=== PATIENT | male | born 1960 | race Caucasian/White ===

== ENCOUNTER 2025-03-31 11:17 | Emergency (ER) | payer OTHER, SELFPAY ==
--- NOTE | 2025-03-31 11:19 | XR_ITS ---
WS: [id number] XR foot RT min 3V* [id number] REASON FOR EXAM: r foot pain FINDINGS: No acute fracture. Joint spaces of the forefoot, midfoot, and hindfoot are intact and well preserved. No radiopaque soft tissue foreign body. XR/XR foot RT min 3V* [id number] IMPRESSION: No significant bone or joint abnormality.
[2025-03-31 11:34] VITALS: BP 165/79; PULSE 79; TEMP 36.9; O2SAT 97
--- NOTE | 2025-03-31 11:54 | W.ED.EXTPRO ---
HPI - Extremity Problem General: Chief complaint: Extremity Injury, Lower Stated complaint: R foot pain Time Seen by Provider: 03/31/25 11:45 Source: patient Mode of arrival: ambulatory Limitations: no limitations History of Present Illness: Patient is a 64-year-old male who presents the emergency department from work after having his right foot struck by a metal pole. Patient states the pole weighed substantial amount and it struck him to the top of the right foot, has been ambulatory but bearing weight exacerbates the pain. At rest he is pain-free. States he is diabetic just to make sure there is nothing broken or injured to the soft tissues. No previous fractures or injuries to the right foot that he reports. Has not taken any medications prehospital. This is work-related injury. States that he continued to work after the injury. MD Complaint: extremity pain Onset (ago): hour(s) Pain Consistency: constant Location: lower extremity Associated symptoms: Deny chest pain, fever(s) or rash Related Data Allergies Allergy/AdvReac Type Severity Reaction Status Date / Time naproxen Allergy Unknown Verified 03/31/25 11:39 orphenadrine (From Norflex) Allergy Unknown Verified 03/31/25 11:39 Review of Systems General: Reports: 10 or more systems reviewed and unremarkable except in HPI and below Const: Denies: fever(s) or chills Card: Denies: chest pain Resp: Denies: dyspnea or productive cough GI: Denies: abdominal pain, nausea, vomiting or diarrhea : Denies: flank pain Musc: Reports: extremity pain (rt foot); Denies: neck pain, back pain, extremity swelling, joint pain, joint swelling, joint redness, joint warmth, limited range of motion or muscle weakness Skin/Breast: Denies: rash Neuro: Denies: headache(s), numbness in extremities or weakness in extremities Physical Exam Const: COMMON NORMALS: no acute distress, patient oriented x3, no limitations, healthy appearing, alert and well nourished HENMT: COMMON NORMALS: normocephalic and atraumatic HEAD & SCALP: normocephalic and atraumatic Extremity: COMMON NORMALS: full ROM, capillary refill normal, no joint enlargement and no clubbing, cyanosis or edema NARRATIVE EXTREMITY EXAM: Tender to palpation to dorsum of right foot, there is no significant swelling or bruising noted. Small area of erythema noted with small abrasion. Full range of motion. Distal neurovascular exam is normal. Neuro: COMMON NORMALS: patient oriented x3, moves all extremities, no focal motor deficits and no sensory deficits noted SENSORIUM/ORIENTATION: Yes alert Skin: COMMON NORMALS: no rashes or lesions noted GENERAL SKIN EXAM: no rashes or lesions noted Course Vital Signs: Vital signs: Vital Signs Temperature 98.4 F 03/31/25 11:34 Pulse Rate 79 03/31/25 11:34 Blood Pressure 165/79 03/31/25 11:34 Pulse Oximetry 97 03/31/25 11:34 Oxygen Delivery Me thod Room Air 03/31/25 11:34 MDM - Extremity (Nontraumatic) Medical Decision Making Patient presented after injuring right foot at work, struck by a large heavy metal pole. He continued to work for some time after this incident, but pain has steadily worsened and he presents for evaluation. No significant concerns on physical exam other than small area of erythema with an abrasion, there is no significant point tenderness to palpation. Full range of motion and strength is preserved. X-ray does not show any fracture or signs of acute injury. He has been ambulatory though with a limp, suspect this is contused right foot and he will treat conservatively at home. UDS obtained as this is work-related injury. Lab Data Radiology Impressions Foot X-Ray 03/31/25 11:19 IMPRESSION: No significant bone or joint abnormality. All radiology interpretation(s) finalized by discharge Discharge Plan Discharge Patient Disposition: Home Clinical Impression: Work related injury, Contusion of foot, right Condition: Stable Discharge Orders: Discharge ED (Routine); Ordered 03/31/25 Ordered By: Tee De Luna Patient Instructions: Patient Portal & Jon Instructions Activity Restrictions/Additional Instructions: Discharge Instructions DIAGNOSIS Right foot contusion (bruise) from workplace injury INJURY DETAILS You were injured at work when a large metal pole head struck your right foot. X-rays showed no broken bones. You have a bruise (contusion) of your right foot. WHAT TO DO AT HOME Rest and Elevation - Rest your right foot as much as possible for the next few days - Elevate your foot above heart level when sitting or lying down to reduce swelling - Avoid prolonged standing or walking Ice and Pain Management - Apply ice to the injured area for 15-20 minutes at a time, several times per day - Place a towel between the ice and your skin - You may take [id number] pain medication as directed SPECIAL INSTRUCTIONS FOR YOUR DIABETES Because you have diabetes, foot injuries require extra attention and care. Daily Foot Checks - Inspect your feet every day, looking for cuts, blisters, redness, swelling, or any changes - Check the injured right foot especially carefully - If you cannot see the bottom of your feet well, use an unbreakable mirror or ask someone to help you - Feel your feet with your hands to check for warmth or swelling Foot Care - Keep your feet clean and dry - Apply moisturizer to dry skin, but not between your toes - Do not try to remove calluses or treat ingrown toenails yourself - Wear clean, dry socks every day Proper Footwear - Never walk barefoot, even at home - Wear well-fitted, supportive shoes (athletic or walking shoes are good choices) - Avoid open-toed shoes - Check inside your shoes for objects or rough areas before putting them on - For work, you may need special protective footwear?discuss this with your employer and follow-up doctor Blood Sugar Control - Continue taking your diabetes medications as prescribed - Monitor your blood sugar levels as directed by your doctor - Good blood sugar control helps your foot heal properly WHEN TO SEEK IMMEDIATE MEDICAL ATTENTION Call your doctor or go to the emergency department right away if you notice: - Increased pain, redness, or swelling in your foot - Warmth in the injured foot, especially if it feels warmer than the other foot - Any open sores, cuts, or breaks in the skin - Drainage, pus, or foul odor from the foot - Fever or chills - Red streaks going up your leg - Numbness or tingling that is new or worsening - Any skin color changes (very pale, blue, or dark) These signs could indicate a serious infection or other complication that requires urgent treatment. FOLLOW-UP CARE Appointments - Follow up with your primary care doctor or a health informatics specialist within 3-5 days - Bring this paperwork to your appointment - Your doctor will check your healing and assess your foot for any nerve damage or circulation problems Worker's Compensation - This is a work-related injury covered under Worker's Compensation - Keep all medical paperwork and receipts - Follow all restrictions and recommendations from your doctors - Contact your employer's Worker's data security coordinator with any questions about your claim Work Status - Work restrictions will be determined by your follow-up doctor based on your job duties and healing progress - Do not return to work until cleared by your doctor IMPORTANT REMINDERS - If you smoke, consider quitting?smoking increases your risk of foot complications - Continue all your regular diabetes care, including any scheduled appointments with your diabetes doctor - People with diabetes are at higher risk for foot problems, so ongoing foot care and regular check-ups with a health informatics specialist may be recommended Print Language: Swedish Coding Level of Care Code ED S[employer] for Marcia Horan
[2025-03-31 12:28] LABS: PCP Screen Urine Negative (Negative)
== END 2025-03-31 12:08 | disposition home or self-care (01) ==
PROVIDERS: Emergency Provider Physician Assistant
DX: S90.31XA Contusion of right foot, initial encounter (principal); Y99.0 Civilian activity done for income or pay; W22.8XXA Striking against or struck by other objects, initial encounter
CPT/HCPCS: 73630; 80306; 99284